=== PATIENT | female | born 1955 | race Caucasian/White ===

== ENCOUNTER 2016-11-17 10:50 | Outpatient (CLI) | payer OTHER ==
[~2016-11-17 10:50] MED LIST: ASPIRIN325 MG PO; ATORVASTATIN CA20 MG PO; FLUOXETINE HCL20 MG PO; HYCET1 ML PO; IRON PO; LOPRESSOR50 MG PO; MAXZIDE-25 PO; MULTIVITAMIN1 TAB PO; PRAVASTATIN SOD20 MG PO; PRINIVIL5 MG PO
--- NOTE | 2016-11-17 13:03 | DIAGNOSTIC IMAGING REPORT ---
PROCEDURE: US BILATERAL CAROTID DOPPLER INDICATION: 1YR F/U OCCLUSION TECHNIQUE: Color Doppler duplex imaging of the carotid and vertebral vessels. COMPARISON: None. FINDINGS: Minor plaque formation of the bifurcations bilaterally. Vessels are patent. Right common carotid artery peak systolic velocity 63 cm/second. Right internal carotid artery peak systolic velocity 68 cm/second. Right external carotid artery peak systolic velocity 100 cm/second. Right wirgreef-nc-bcvrym carotid artery ratio 1.1 Right vertebral artery peak systolic velocity 44 cm/second antegrade. Left common carotid artery peak systolic velocity 57 cm/second. Left internal carotid artery peak systolic velocity 92 cm/second. Left external carotid artery peak systolic velocity 166 cm/second. Left qihppgkz-rh-fsarhu carotid artery ratio 1.6 Left vertebral artery peak systolic velocity 49 cm/second antegrade. IMPRESSION: 1. Minor plaque formation of the bifurcations bilaterally without hemodynamically significant lesions 2. Bilateral ICA 5-15% stenosis 3. Left ECA 50-99% stenosis, unchanged Velocity criteria are extrapolated from diameter data as defined by the Society of Radiologists in Ultrasound Consensus Conference, Radiology 2003; 229; 340-346.
--- NOTE | 2016-11-17 13:03 | DIAGNOSTIC IMAGING REPORT ---
PROCEDURE: US BILATERAL CAROTID DOPPLER INDICATION: 1YR F/U OCCLUSION TECHNIQUE: Color Doppler duplex imaging of the carotid and vertebral vessels. COMPARISON: None. FINDINGS: Minor plaque formation of the bifurcations bilaterally. Vessels are patent. Right common carotid artery peak systolic velocity 63 cm/second. Right internal carotid artery peak systolic velocity 68 cm/second. Right external carotid artery peak systolic velocity 100 cm/second. Right nhhuqpdm-hf-ejcyfv carotid artery ratio 1.1 Right vertebral artery peak systolic velocity 44 cm/second antegrade. Left common carotid artery peak systolic velocity 57 cm/second. Left internal carotid artery peak systolic velocity 92 cm/second. Left external carotid artery peak systolic velocity 166 cm/second. Left nxzkewvm-dr-rbxuba carotid artery ratio 1.6 Left vertebral artery peak systolic velocity 49 cm/second antegrade. IMPRESSION: 1. Minor plaque formation of the bifurcations bilaterally without hemodynamically significant lesions 2. Bilateral ICA 5-15% stenosis 3. Left ECA 50-99% stenosis, unchanged Velocity criteria are extrapolated from diameter data as defined by the Society of Radiologists in Ultrasound Consensus Conference, Radiology 2003; 229; 340-346.
== END 2016-11-17 23:00 ==
LOC: US SRH 10:50
DX: I65.22 Occlusion and stenosis of left carotid artery (principal)

== ENCOUNTER 2016-12-03 17:16 | Observation (INO) | payer OTHER ==
[~2016-12-03] VITALS: Ht 149.9 cm; Wt 96.3 kg
--- NOTE | 2016-12-03 17:46 | DIAGNOSTIC IMAGING REPORT ---
PROCEDURE: CT HEAD WITHOUT CONTRAST INDICATION: STROKE right-sided weakness and paresthesias. TECHNIQUE: Axial CT images were acquired through the head. Coronal and sagittal reformations were created. COMPARISON: 05/17/2015 FINDINGS: No intracranial hemorrhage or extraaxial fluid collections. Ventricles are normal in size, shape and position. There is no mass, mass effect or midline shift. A slight heterogeneous low density region, slight cortical volume loss, and widening of the sylvian fissure in the left temporal and caudal parietal lobes in the area of prior infarct. The lacey-white matter differentiation is otherwise normal. There is no acute edema. The calvarium is intact. The paranasal sinuses and mastoid air cells are normally aerated. The extracranial soft tissues and orbits are normal. IMPRESSION: 1. No CT evidence of acute intracranial process. 2. Changes of prior left parietal and temporal lobe infarct. 3. Findings discussed with Dr. Poon at [address] scans at this facility use dose modulation, iterative reconstruction, and/or weight-based dosing when appropriate to reduce radiation dose to as low as reasonably achievable.
--- NOTE | 2016-12-03 19:02 | ED CLINICAL REPORT ---
Clinical Report - Physicians/Mid Levels [facility] [address] [place] [address] 12/03/2016 17:16 Patient: GREGORIO MONZON Time Seen: 1722; initial patient contact. Arrived- By private vehicle. Historian- patient. HISTORY OF PRESENT ILLNESS Chief Complaint: PARESTHESIA and FACIAL DROOP. This started today pproximately 2 hours prior to arrival in the emergency department and is still present (unchanged). It was abrupt in onset and has been constant but is not gone now. At its maximum deficit described as mild. When seen in the E.D., deficit described as mild. No altered mental status. Usually is alert and oriented X3 and has normal mobility. (patient [place] from [place]. Patient reports running out of her medications and not taking them for the past 2 days. Patient states that he does not completely understand her medications at this time as some of the medications she was given are in Upper Sor[place] and she is unable to read them.). Similar symptoms previously: Once. Recent medical care: Not recently seen/assessed. REVIEW OF SYSTEMS No fever, headache, chest pain, difficulty breathing or abdominal pain. No skin rash or vomiting. She has had nausea. All systems otherwise negative, except as recorded above. PAST HISTORY See nurses notes. Medications: ASA Oral 325mg , day ("I dond't take it"). Pramipexole Dihydrochloride Oral. Lipitor Oral. Valsartan-Hydrochlorothiazide Oral 160/25 mg, daily. Concor 5mg. Allergies: PCN. SOCIAL HISTORY Never smoker. No alcohol use or drug use. Recent travel. Is a local resident. ADDITIONAL NOTES The nursing notes have been reviewed. PHYSICAL EXAM Vital Signs: 12/03/2016 17:20 BP: 215/106. HR: 87. RR: 20. O2 saturation: 100%. Temp: 100.2 F. Hypertensive. Oxygen saturation normal. Appearance: Alert. No acute distress. (nontoxic appearance). Head: Head atraumatic. Eyes: Pupils equal, round and reactive to light. Pupillary exam: Right pupil 3mm, round and reactive to light directly and consensually and with accommodation. Left pupil: 3mm, round and reactive to light directly and consensually and with accommodation. No visual field deficit. No double vision. No nystagmus. ENT: Normal ENT inspection. Airway intact. Pharynx normal. Neck: Normal inspection. Neck supple. No meningeal signs. CVS: Normal heart rate and rhythm. Heart sounds normal. Pulses normal. Respiratory: No respiratory distress. Breath sounds normal. Abdomen: Soft and nontender. No organomegaly. Skin: Skin warm and dry. Normal skin color. No rash. Normal skin turgor. Extremities: Extremities exhibit normal ROM. No lower extremity edema. Neuro: Alert. Oriented X 3. No aphasia. Mood/affect normal. Mild dysarthria. Cranial nerves normal (as tested). Mild left-sided facial weakness. No cerebellar findings. No motor deficit. No sensory deficit. Reflexes normal. No pronator drift. LABS, X-RAYS, AND EKG EKG: No acute process. No acute ischemia. Normal EKG. Rate: 86. Normal P waves. Normal ABEBE. Normal QRS complex. Normal axis. Normal ST and T waves, QT and QTc. The study has been interpreted contemporaneously. The study has been independently viewed by me. The EKG appears to be a good tracing. Chest X-ray: (PROCEDURE: XR CHEST 1 VIEW INDICATION: STROKE TECHNIQUE: Single view chest. 1745 hours COMPARISON: None FINDINGS: Cardiomediastinal contour and central vessels are normal. Clear lungs. Surgical clips in the left neck. Intact osseous structures. IMPRESSION: 1. No evidence of acute cardiopulmonary disease.). CTA Head: PROCEDURE: CTA HEAD AND NECK INDICATION: STROKE SYMPTOMS TECHNIQUE: Axial thin-slice CTA images through the neck and head were acquired following uncomplicated administration of 120 ml Isovue 370 IV contrast. Coronal and sagittal MIP reformations were created. COMPARISON: None. FINDINGS: Head: Slightly delayed scan results in suboptimal arterial opacification. Anterior circulation: Anterior communicating artery is suboptimally seen but no evidence of aneurysm. Both anterior cerebral arteries are patent without stenosis or occlusion. Internal carotid arteries are patent bilaterally. No aneurysm at the carotid termini. Middle cerebral arteries are patent to the extent there visualized without acute occlusion. Posterior circulation: Patent posterior communicating arteries bilaterally. Codominant vertebral arteries. No evidence of basilar terminus aneurysm. Posterior cerebral arteries are patent. Bilateral cerebellar arteries are normally perfused to the extent that could be visualized. Other findings: Neck: Carotid system: Tortuous origin of the right common carotid. No evidence of dissection. Surgical clips in the region of the left carotid bifurcation. Calcification at the origin of the left external carotid artery causing least 50% stenosis. Tortuous proximal left ICA. No dissection or significant stenosis. Vertebral system: The left vertebral artery is dominant. The right is extremely diminutive diffusely. No dissection. Other findings: IMPRESSION: 1. No acute occlusion, aneurysm, or dissection. 2. Surgical clips suggestive of prior left carotid intervention. CT Head: (PROCEDURE: CT HEAD WITHOUT CONTRAST INDICATION: STROKE right-sided weakness and paresthesias. TECHNIQUE: Axial CT images were acquired through the head. Coronal and sagittal reformations were created. COMPARISON: 05/17/2015 FINDINGS: No intracranial hemorrhage or extraaxial fluid collections. Ventricles are normal in size, shape and position. There is no mass, mass effect or midline shift. A slight heterogeneous low density region, slight cortical volume loss, and widening of the sylvian fissure in the left temporal and caudal parietal lobes in the area of prior infarct. The lacey-white matter differentiation is otherwise normal. There is no acute edema. The calvarium is intact. The paranasal sinuses and mastoid air cells are normally aerated. The extracranial soft tissues and orbits are normal. IMPRESSION: 1. No CT evidence of acute intracranial process. 2. Changes of prior left parietal and temporal lobe infarct.). Head CT performed without contrast. The study was independently viewed by me and interpreted by the radiologist. The study was discussed with the radiologist (via phone and pacs). Laboratory Tests: CBC w Diff: (DAMEON: 12/03/2016 17:20) ( MsgRcvd 12/03/2016 17:33) Final results Test Result Flag Units (Reference) WHITE BLOOD COUNT 11.9 H K/uL (4.5-11.5) RED BLOOD COUNT 4.87 M/uL (4.00-5.20) HEMOGLOBIN 14.3 gm/dL (12.0-16.0) HEMATOCRIT 43.4 % (36.0-46.0) MEAN CELL VOLUME 89 fL (80-100) MEAN CORPUSCULAR HGB 29 pg (26-34) MEAN CORPUSCULAR HGB CONC 33 g/dL (31-37) RED CELL DISTRIBUTION WIDTH 13.6 % (11.6-14.8) PLATELET COUNT 465 H K/uL (150-400) NEUTROPHIL % 68.6 % (50-75) LYMPH % 24.1 L % (25-40) MONO % 6.2 % (3-14) EOSINOPHIL % 0.9 % (0-4) BASOPHIL % 0.2 % (0-2) PT with INR: (DAMEON: 12/03/2016 17:20) ( MsgRcvd 12/03/2016 17:41) Final results Test Result Flag Units (Reference) INR 1.0 (0.8-1.2) Low Intensity Therapy: INR 1.5-2.0 PT range 18.5-23.1Mod.Intensity Therapy: INR 2.0-3.0 PT range 23.1-31.5High Intensity Therapy: INR 2.5-3.5 PT range 27.4-35.5High Intensity Therapy 2: INR 3.0-4.0 PT range 31.5-39.3 APTT 37 H SECONDS (24-34) FIBRINOGEN 434 mg/dL (193-455) D-DIMER QUANTITATIVE < 0.27 L ug/mLFEU (0.27-0.52) The primary value of this quantitative assay relates toits negative predictive value (i.e. exclusion) of pulmonaryembolism/deep vein thrombosis/DIC.Elevated levels of d-dimer may also occur with:, age, cancer, inflammation, liver disease,post-op, infection, hematoma, coronary disease, peripheralarteriopathy, bleeding disorders and thrombolytic treatment.Results should be correlated with other clinical andradiological data.Testing Methodology: Latex Immunoassay CMP: (DAMEON: 12/03/2016 17:20) ( MsgRcvd 12/03/2016 17:43) Final results Test Result Flag Units (Reference) GLUCOSE 176 H mg/dL (70-110) BUN 20 H mg/dL (7-18) CREATININE 1.1 mg/dL (0.6-1.3) Estimated GFR 54.03 mL/min Estimated GFR- >60 mL/min Note: Persistent reduction over 3 months in eGFR<60 mL/min/1.73 m2 defines CKD. Patients with eGFR values>=60 mL/min/1.73 m2 may also have CKD if evidence ofpersistent proteinuria. Additional information may be foundat [email or web address]. SODIUM 144 mmol/L (136-145) POTASSIUM 3.2 L mmol/L (3.5-5.1) CHLORIDE 105 mmol/L (98-107) CARBON DIOXIDE 27 mmol/L (21-32) CALCIUM 8.7 mg/dL (8.5-10.1) TOTAL PROTEIN 7.5 g/dL (6.4-8.2) ALBUMIN 3.7 g/dL (3.3-5.0) BILIRUBIN, TOTAL 0.3 mg/dL (0.0-1.0) ALKALINE PHOSPHATASE 104 U/L (46-116) AST (SGOT) 17 U/L (15-37) ALT (SGPT) 28 U/L (12-78) . PROGRESS AND PROCEDURES Course of Care: the patient is a pleasant 61-year-old female with past medical history significant for peripheral vascular disease and prior stroke presented for evaluation of left-sided subjective tingling and facial droop. On examination, patient has NH stroke scale of 4. Patient with some slurred speech however does not have any difficulty with word finding or with fluid speech. Patient with slight facial droop on the left with inability to move her tongue to the left. Patient also with subjective decreased sensation to the left upper extremity and left face. Sparing of the forehead is noted on patient's examination. No other findings noted on patient's examination except for significantly elevated blood pressure. Patient was called over as a code stroke. Had a discussion with the patient in regards to her workup here in the emergency department and plan of care. Patient is agreeable to the workup. Patient's workup was noted for no acute abnormalities. Patient's PT and INR are otherwise normal. Patient's PTT is slightly elevated however but only just above the upper limits of normal. Because of the patient's time course occurring approximately 2-1/2 hours prior to arrival in the emergency department, patient would be a candidate for TPA. Had a discussion with stroke neurology over at [facility]. At this point in time because the patient's NIH stroke scale of 4 and blood pressure had significantly improved with the dose of labetalol, patient will be a candidate for TPA. Shortly after obtaining recommendations from [facility], patient was reevaluated and found to have significant improvement with her symptoms and her blood pressure did also significantly improved as well. Patient now with NIH stroke scale of 1 with only slight facial droop on the left side. Other symptoms have resolved. Because of the rapidly improving symptoms, do not feel TPA is warranted at this time. Had a discussion with patient in regards toTPA and the risks and benefits of this medication. Patient currently is declining this medication as well. Stroke. Also recommended patient have a CTA. CTA has been ordered. We are currently awaiting the patient's CTA results and patient will need to be observed for stroke workup. Patient's CT is noted for no acute abnormalities. Spoke to the hospitalist will accept the patient. No further recommendations made. I discussed with the patient workup here in the emergency department including diagnosis, And plan of care. All questions have been answered. Patient is agreeable to the treatment and plan. (Electronically signed by Carl Poon Dr. 12/03/2016 20:26)
--- NOTE | 2016-12-03 19:02 | ED NURSING NOTES ---
Clinical Report - Nurses [facility] [address] [place] [address] 12/03/2016 17:16 Patient: GREGORIO MONZON TRIAGE Triage time 17:20. Acuity: LEVEL 3. Chief Complaint: DIZZINESS, NUMBNESS and BACK PAIN (Lt side of the face feels numb, started at 1515 today, back pain. I took 2 baby asa earlier Bedside glucose 168mg/dl. Lt arm feels numb.). Alert. No acute distress. SEPSIS SCREEN: Sepsis Screen: negative. Negative (no infection suspected/documented). MARIA G COMA SCORE: Maria G Coma Scale: 15- eyes open spontaneously (4); best verbal response- oriented x 4 (5); best motor response- obeys commands (6). --17:36 Cindy Malik R.N. 17:20 12/03/16. BP: 215/106. HR: 87. RR: 20. O2 saturation: 100%. Temp: 100.2 F. --17:36 Cindy Malik R.N. 17:20 12/03/16. BP: 215/106. HR: 87. RR: 20. O2 saturation: 100%. Temp: 100.2 F. --17:36 Cindy Malik R.N. Weight: 95.7 kg measured. Height/Length: 59 inches Per Patient. BMI: 42.6. --17:23 Cindy Malik R.N. Medications Concor 5mg. --17:28 Cindy Malik R.N. Lipitor Oral. Valsartan-Hydrochlorothiazide Oral 160/25 mg, daily. --17:30 Cindy Malik R.N. Pramipexole Dihydrochloride Oral. --17:33 Cindy Malik R.N. ASA Oral 325mg , day ("I dond't take it"). --17:34 Cindy Malik R.N. Allergies PCN. --17:32 Cindy Malik R.N. Medication/allergy information source: the patient. --17:36 Cindy Malik R.N. History Arrived by private vehicle. Historian: patient and family. ( Stroke code called. at the bedside doing stroke scale.). This started today. She has had weakness. 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 PAST MEDICAL HX: Immunizations: status is unknown. The patient is post-menopausal. FALL RISK ASSESSMENT: Fall risk assessment completed. No fall risk identified. NUTRITIONAL RISK ASSESSMENT: The nutritional risk assessment revealed no deficiencies. FUNCTIONAL ASSESSMENT: Functional assessment: no impairments noted. LEARNING NEEDS ASSESSMENT: The learning needs assessment revealed no barriers. SKIN INTEGRITY ASSESSMENT: Skin integrity risk assessment completed. No skin integrity risk identified. --17:36 Cindy Malik R.N. Primary physician (Amee). --17:36 Cindy Malik R.N. PROBLEMS: CVA - Cerebrovascular Accident. Hypertension. --17:35 Cindy Malik R.N. ADDITIONAL SURGERIES: Knee Surgery. --17:35 Cindy Malik R.N. Interventions ID band on patient. To room. --17:36 Cindy Malik R.N. PHYSICAL ASSESSMENT To room via wheelchair. Patient gowned. GENERAL / NEURO / PSYCH: Alert. Oriented X 4. Appears anxious. HEENT: Left-sided facial weakness. RESPIRATORY: Respirations not labored. CVS: Capillary refill less than 2 seconds. GI / : Abdomen nontender. SKIN: Skin intact. Skin is warm and dry. Normal skin turgor. --17:37 Cindy Malik R.N. NURSING PROGRESS NOTES Oxygen administered at 2 liters. teletypesetter monitor, pulse oximeter and NIBP monitor placed on patient; monitoring tech- Lead II; monitor alarms on. EKG time: (1740). EKG was performed by a donta and shown to the ED physician. Patient gowned. Head of bed elevated. Two patient identifiers checked. Call light placed in reach. Side rails up x 2. Bed placed in lowest position. Brakes of bed on. --17:38 Cindy Malik R.N. 17:24 12/03/2016 Site #1 started via IV in the right antecubital space with an 18g angiocath, with aseptic technique and good blood return; one attempt. Blood drawn: rainbow set. Labeled in the presence of the patient. Saline lock flushed with 10 mL saline. --17:39 Cindy Malik R.N. 17:29 12/03/2016 Site #2 started via IV in the left antecubital space with an 18g angiocath, with aseptic technique and good blood return; one attempt. Blood drawn: rainbow set. Labeled in the presence of the patient and sent to the lab. Saline lock flushed with 10 mL saline. --17:39 Cindy Malik R.N. EKG time: (1740). EKG was ordered, performed by a tech and shown to the ED physician. --17:40 Brenda Yoon 17:42 12/03/16. Portable chest x-ray ordered, performed and shown to the ED physician. --17:42 Cindy Malik R.N. Care transferred and report given (Given to EVERETT Fall). --18:00 Cindy Malik R.N. 18:01 12/03/2016 Labetalol IVP 20 mg given. via site #2. Allergies verified and confirmed 5 rights. IV patency established. IV site checked: no pain, redness, or swelling. IV flushed thoroughly pre- and post-medication administration. IVP given by RN. --18:04 Bhupendra Romero R.N. 18:01. 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 --18:10 Bhupendra Romero R.N. 17:54 12/03/16. BP: 204/79. HR: 109. RR: 21. O2 saturation: 98%. Additional comments: just prior to labetolol admin. --18:11 Bhupendra Romero R.N. 18:01 12/03/16. BP: 174/76. HR: 82. RR: 19. Pain level now: 08/08. Additional comments: after labetolol. --18:12 Bhupendra Romero R.N. Cardiac rhythm: no ectopy noted (SR). NIH STROKE SCALE: NIH Stroke Scale: score 1. Performed at 18:17. Level of Consciousness: alert (0). LOC Questions: both (0). LOC Commands: both (0). Best gaze: normal (0). Visual field loss: none (0). Facial palsy: normal (0). Motor arm: no drift right arm (0) and no drift left arm (0). Motor leg: no drift right leg (0) and no drift left leg (0). Limb ataxia: none (0). Sensory loss: mild to moderate (1). Aphasia: none (0). Dysarthria: normal (0). Extinction and inattention: none (0). --18:17 Bhupendra Romero R.N. 18:17 12/03/16. BP: 159/75. HR: 81. O2 saturation: 97%. Pain level now: 08/08. --18:17 Bhupendra Romero R.N. ( MD at bedside speaking with pt regarding poc). --18:19 Bhupendra Romero R.N. ( MD at bedside explaining plan for admission). --18:30 Bhupendra Romero R.N. 18:29 12/03/16. BP: 159/75. HR: 74. RR: 18. Pain level now: 08/08. --18:30 Bhupendra Romero R.N. ( pt to CT with donta ok per MD for pt to go without RN). --18:36 Bhupendra Romero R.N. 18:56 12/03/16. Cardiac rhythm: (SR). Call light placed in reach. Side rails up. Patient waiting for CT results. --19:08 Bhupendra Romero R.N. 18:56 12/03/16. Pain level now 08/08. --19:08 Bhupendra Romero R.N. ( pt using cell phone to call her son to notify him of admission. pt remains a/o, maee, speech is clear and articulate, pt moves about independently on [facility], waiting room for admission). --19:09 Bhupendra Romero R.N. Patient identifiers checked. Call light placed in reach. Side rails up x 2. Bed placed in lowest position. Brakes of bed on. --19:09 Bhupendra Romero R.N. teletypesetter monitor, pulse oximeter and NIBP monitor placed on patient; monitoring tech- Lead II and V5; monitor alarms on. --19: Bhupendra Romero R.N. ( son arrived at bedside). --19:19 Bhupendra Romero R.N. ( pt provided form builder to use for ipad, speech remains clear, no c/o voiced, iv site to left arm redressed as pts only c/o was "that needle hurts" after redressing pt reports no pain). --19:45 Bhupendra Romero R.N. 20:19 12/03/16. HR: 81. RR: 17. Pain level now: 08/08. --20:20 Bhupendra Romero R.N. ( hospitalist at bedside, pt in ,). --20:21 Bhupendra Romero R.N. Patient identifiers checked. Call light placed in reach. Side rails up. Bed placed in lowest position. Brakes of bed on. NIH STROKE SCALE: NIH Stroke Scale: score 0. pt "I am completely back to normal". Level of Consciousness: alert (0). LOC Questions: both (0). LOC Commands: both (0). Best gaze: normal (0). Visual field loss: none (0). Facial palsy: normal (0). Motor arm: no drift right arm (0) and no drift left arm (0). Motor leg: no drift right leg (0) and no drift left leg (0). Limb ataxia: none (0). Sensory loss: none (0). Aphasia: none (0). Dysarthria: normal (0). Extinction and inattention: none (0). --21:14 Bhupendra Romero R.N. 21:13 12/03/16. BP: 163/91. HR: 78. RR: 17. O2 saturation: 98%. Pain level now: 4/10. Additional comments: c/o headache. --21:14 Bhupendra Romero R.N. DISPOSITION / DISCHARGE Report was given to a nurse via a phone call. Report included patient's care, treatment, medications, reviewed medication reconcilliation, and condition (including any recent changes or anticipated changes). All questions were answered. Report was acknowledged and care was transferred. (EVERETT Weiss). --21:53 Tony Sy R.N. Condition at departure: stable. The goals identified in the patient's plan of care were met. Patient's personal items include: dress, undergarments and jewelry, iPad; items were placed in belongings bag, given to the patient and transported with the patient. Collection of belongings was witnessed by 1 nurse. MARIA G COMA SCORE: [place] Coma Scale: 15- eyes open spontaneously (4); best verbal response- oriented x 4 (5); best motor response- obeys commands (6). --21:59 Tony Sy R.N. 21:58 12/03/16. BP: 170/99 (regular adult cuff) taken on the right arm, via an automated monitor, while lying. HR: 81 (regular and normal rate). RR: 18 (regular, unlabored and normal). O2 saturation: 96% on room air. Temp: 98.1 F (oral). Pain level now: 0/10. --21:59 oTny Sy R.N. Locked/Released at 12/04/2016 0:37 by Bhupendra Romero R.N.
--- NOTE | 2016-12-03 19:02 | ED ORDER SUMMARY ---
..... Patient: GREGORIO MONZON OrderSheet [facility] VisitID: [id number] [place] [address] 61y, F Registration Date/Time: 12/03/2016 ORDER SHEET Weight: 95.7 kg (measured) Allergies: PCN GENERAL ORDERS: Chest 1V Urgent (17:12/03/2016 Shane Amaya) (Ack 17:26 TBergley) (17:39 TBergley) Rover Tender (Continuous) (stroke) (17:12/03/2016 Shane Amaya) (Ack 17:26 TBergley) (17:33 TBergley) CT Head wo Cont Urgent (17:12/03/2016 Shane Amaya) (Ack 17:26 TBergley) (17:39 TBergley) Stroke Panel Stat (17:12/03/2016 Shane Amaya) (Ack 17:26 TBergley) (17:39 TBergley) EKG - ER Stat (17:12/03/2016 Shane Amaya) (Ack 17:26 TBergley) (17:33 TBergley) CTA Head and Neck (No) (gfr > 60) Urgent (18:22 12/03/2016 Shane Amaya) (Ack 18:26 TBergley) (18:50 TBergley) MEDICATION ORDERS: Aspirin PO 162 mg (Do not crush or chew, NOW) (17:12/03/2016 Shane Amaya) (Cancelled: Physician Order17:26 Shane Amaya) IV FLUIDS: IV Saline Lock (17:25 12/03/2016 Shane Amaya) (17:40 SRoberts R.N.) Labetalol IV 20 mg (HIGH ALERT MEDICATION, NOW) (17:49 12/03/2016 Shane Amaya) (18:04 Talha R.N.) Labetalol IV 20 mg (HIGH ALERT MEDICATION, NOW) (18:02 12/03/2016 Shane Amaya) (Cancelled: Duplicate Order18:07 Shane Amaya) ORDER SHEET NOTES: [Electronically signed by Carl Poon Dr. (20:26 12/03/2016)] [Electronically signed by Bhupendra Romero R.N. (00:37 12/04/2016)] [Electronically locked/signed by Bhupendra Romero R.N. (00:37 12/04/2016)]
--- NOTE | 2016-12-03 19:02 | ED ORDER SUMMARY ---
..... Patient: GREGORIO MONZON OrderSheet [facility] VisitID: [id number] [place] [address] 61y, F Registration Date/Time: 12/03/2016 ORDER SHEET Weight: 95.7 kg (measured) Allergies: PCN GENERAL ORDERS: Chest 1V Urgent (17:12/03/2016 Shane Amaya) (Ack 17:26 TBergley) (17:39 TBergley) Stock Grader (Continuous) (stroke) (17:12/03/2016 Shane Amaya) (Ack 17:26 TBergley) (17:33 TBergley) CT Head wo Cont Urgent (17:12/03/2016 Shane Amaya) (Ack 17:26 TBergley) (17:39 TBergley) Stroke Panel Stat (17:12/03/2016 Shane Amaya) (Ack 17:26 TBergley) (17:39 TBergley) EKG - ER Stat (17:12/03/2016 Shane Amaya) (Ack 17:26 TBergley) (17:33 TBergley) CTA Head and Neck (No) (gfr > 60) Urgent (18:22 12/03/2016 Shane Amaya) (Ack 18:26 TBergley) (18:50 TBergley) MEDICATION ORDERS: Aspirin PO 162 mg (Do not crush or chew, NOW) (17:12/03/2016 Shane Amaya) (Cancelled: Physician Order17:26 Shane Amaya) IV FLUIDS: IV Saline Lock (17:25 12/03/2016 Shane Amaya) (17:40 SRoberts R.N.) Labetalol IV 20 mg (HIGH ALERT MEDICATION, NOW) (17:49 12/03/2016 Shane Amaya) (18:04 Talha R.N.) Labetalol IV 20 mg (HIGH ALERT MEDICATION, NOW) (18:02 12/03/2016 Shane Amaya) (Cancelled: Duplicate Order18:07 Shane Amaya) ORDER SHEET NOTES: [Electronically signed by Carl Poon Dr. (20:26 12/03/2016)] [Electronically signed by Bhupendra Romero R.N. (00:37 12/04/2016)] [Electronically locked/signed by Bhupendra Romero R.N. (00:37 12/04/2016)]
--- NOTE | 2016-12-03 19:02 | ED NURSING NOTES ---
Clinical Report - Nurses [facility] [address] [place] [address] 12/03/2016 17:16 Patient: GREGORIO MONZON TRIAGE Triage time 17:20. Acuity: LEVEL 3. Chief Complaint: DIZZINESS, NUMBNESS and BACK PAIN (Lt side of the face feels numb, started at 1515 today, back pain. I took 2 baby asa earlier Bedside glucose 168mg/dl. Lt arm feels numb.). Alert. No acute distress. SEPSIS SCREEN: Sepsis Screen: negative. Negative (no infection suspected/documented). MARIA G COMA SCORE: Maria G Coma Scale: 15- eyes open spontaneously (4); best verbal response- oriented x 4 (5); best motor response- obeys commands (6). --17:36 Cindy Malik R.N. 17:20 12/03/16. BP: 215/106. HR: 87. RR: 20. O2 saturation: 100%. Temp: 100.2 F. --17:36 Cindy Mlaik R.N. 17:20 12/03/16. BP: 215/106. HR: 87. RR: 20. O2 saturation: 100%. Temp: 100.2 F. --17:36 Cindy Malik R.N. Weight: 95.7 kg measured. Height/Length: 59 inches Per Patient. BMI: 42.6. --17:23 Cindy Malik R.N. Medications Concor 5mg. --17:28 Cindy Malik R.N. Lipitor Oral. Valsartan-Hydrochlorothiazide Oral 160/25 mg, daily. --17:30 Cindy Malik R.N. Pramipexole Dihydrochloride Oral. --17:33 Cindy Malik R.N. ASA Oral 325mg , day ("I dond't take it"). --17:34 Cindy Malik R.N. Allergies PCN. --17:32 Cindy Malik R.N. Medication/allergy information source: the patient. --17:36 Cindy Malik R.N. History Arrived by private vehicle. Historian: patient and family. ( Stroke code called. at the bedside doing stroke scale.). This started today. She has had weakness. 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 PAST MEDICAL HX: Immunizations: status is unknown. The patient is post-menopausal. FALL RISK ASSESSMENT: Fall risk assessment completed. No fall risk identified. NUTRITIONAL RISK ASSESSMENT: The nutritional risk assessment revealed no deficiencies. FUNCTIONAL ASSESSMENT: Functional assessment: no impairments noted. LEARNING NEEDS ASSESSMENT: The learning needs assessment revealed no barriers. SKIN INTEGRITY ASSESSMENT: Skin integrity risk assessment completed. No skin integrity risk identified. --17:36 Cindy Malik R.N. Primary physician (Amee). --17:36 Cindy Malik R.N. PROBLEMS: CVA - Cerebrovascular Accident. Hypertension. --17:35 Cindy Malik R.N. ADDITIONAL SURGERIES: Knee Surgery. --17:35 Cindy Malik R.N. Interventions ID band on patient. To room. --17:36 Cindy Malik R.N. PHYSICAL ASSESSMENT To room via wheelchair. Patient gowned. GENERAL / NEURO / PSYCH: Alert. Oriented X 4. Appears anxious. HEENT: Left-sided facial weakness. RESPIRATORY: Respirations not labored. CVS: Capillary refill less than 2 seconds. GI / : Abdomen nontender. SKIN: Skin intact. Skin is warm and dry. Normal skin turgor. --17:37 Cindy Malik R.N. NURSING PROGRESS NOTES Oxygen administered at 2 liters. bus driver/monitor, pulse oximeter and NIBP monitor placed on patient; hospital monitor- Lead II; monitor alarms on. EKG time: (1740). EKG was performed by a donta and shown to the ED physician. Patient gowned. Head of bed elevated. Two patient identifiers checked. Call light placed in reach. Side rails up x 2. Bed placed in lowest position. Brakes of bed on. --17:38 Cindy Malik R.N. 17:24 12/03/2016 Site #1 started via IV in the right antecubital space with an 18g angiocath, with aseptic technique and good blood return; one attempt. Blood drawn: rainbow set. Labeled in the presence of the patient. Saline lock flushed with 10 mL saline. --17:39 Cindy Malik R.N. 17:29 12/03/2016 Site #2 started via IV in the left antecubital space with an 18g angiocath, with aseptic technique and good blood return; one attempt. Blood drawn: rainbow set. Labeled in the presence of the patient and sent to the lab. Saline lock flushed with 10 mL saline. --17:39 Cindy Malik R.N. EKG time: (1740). EKG was ordered, performed by a tech and shown to the ED physician. --17:40 Brenda Yoon 17:42 12/03/16. Portable chest x-ray ordered, performed and shown to the ED physician. --17:42 Cindy Malik R.N. Care transferred and report given (Given to EVERETT Fall). --18:00 Cindy Malik R.N. 18:01 12/03/2016 Labetalol IVP 20 mg given. via site #2. Allergies verified and confirmed 5 rights. IV patency established. IV site checked: no pain, redness, or swelling. IV flushed thoroughly pre- and post-medication administration. IVP given by RN. --18:04 Bhupendra Romero R.N. 18:01. 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 --18:10 Bhupendra Romero R.N. 17:54 12/03/16. BP: 204/79. HR: 109. RR: 21. O2 saturation: 98%. Additional comments: just prior to labetolol admin. --18:11 Bhupendra Romero R.N. 18:01 12/03/16. BP: 174/76. HR: 82. RR: 19. Pain level now: 08/08. Additional comments: after labetolol. --18:12 Bhupendra Romero R.N. Cardiac rhythm: no ectopy noted (SR). NIH STROKE SCALE: NIH Stroke Scale: score 1. Performed at 18:17. Level of Consciousness: alert (0). LOC Questions: both (0). LOC Commands: both (0). Best gaze: normal (0). Visual field loss: none (0). Facial palsy: normal (0). Motor arm: no drift right arm (0) and no drift left arm (0). Motor leg: no drift right leg (0) and no drift left leg (0). Limb ataxia: none (0). Sensory loss: mild to moderate (1). Aphasia: none (0). Dysarthria: normal (0). Extinction and inattention: none (0). --18:17 Bhupendra Romero R.N. 18:17 12/03/16. BP: 159/75. HR: 81. O2 saturation: 97%. Pain level now: 08/08. --18:17 Bhupendra Romero R.N. ( MD at bedside speaking with pt regarding poc). --18:19 Bhupendra Romero R.N. ( MD at bedside explaining plan for admission). --18:30 Bhupendra Romero R.N. 18:29 12/03/16. BP: 159/75. HR: 74. RR: 18. Pain level now: 08/08. --18:30 Bhupendra Romero R.N. ( pt to CT with donta ok per MD for pt to go without RN). --18:36 Bhupendra Romero R.N. 18:56 12/03/16. Cardiac rhythm: (SR). Call light placed in reach. Side rails up. Patient waiting for CT results. --19:08 Bhupendra Romero R.N. 18:56 12/03/16. Pain level now 08/08. --19:08 Bhupendra Romero R.N. ( pt using cell phone to call her son to notify him of admission. pt remains a/o, maee, speech is clear and articulate, pt moves about independently on [facility], waiting room for admission). --19:09 Bhupendra Romero R.N. Patient identifiers checked. Call light placed in reach. Side rails up x 2. Bed placed in lowest position. Brakes of bed on. --19:09 Bhupendra Romero R.N. bus driver/monitor, pulse oximeter and NIBP monitor placed on patient; hospital monitor- Lead II and V5; monitor alarms on. --19: Bhupendra Romero R.N. ( son arrived at bedside). --19:19 Bhupendra Romero R.N. ( pt provided toll gate tender to use for ipad, speech remains clear, no c/o voiced, iv site to left arm redressed as pts only c/o was "that needle hurts" after redressing pt reports no pain). --19:45 Bhupendra Romero R.N. 20:19 12/03/16. HR: 81. RR: 17. Pain level now: 08/08. --20:20 Bhupendra Romero R.N. ( hospitalist at bedside, pt in ,). --20:21 Bhupendra Romero R.N. Patient identifiers checked. Call light placed in reach. Side rails up. Bed placed in lowest position. Brakes of bed on. NIH STROKE SCALE: NIH Stroke Scale: score 0. pt "I am completely back to normal". Level of Consciousness: alert (0). LOC Questions: both (0). LOC Commands: both (0). Best gaze: normal (0). Visual field loss: none (0). Facial palsy: normal (0). Motor arm: no drift right arm (0) and no drift left arm (0). Motor leg: no drift right leg (0) and no drift left leg (0). Limb ataxia: none (0). Sensory loss: none (0). Aphasia: none (0). Dysarthria: normal (0). Extinction and inattention: none (0). --21:14 Bhupendra Romero R.N. 21:13 12/03/16. BP: 163/91. HR: 78. RR: 17. O2 saturation: 98%. Pain level now: 4/10. Additional comments: c/o headache. --21:14 Bhupendra Romero R.N. DISPOSITION / DISCHARGE Report was given to a nurse via a phone call. Report included patient's care, treatment, medications, reviewed medication reconcilliation, and condition (including any recent changes or anticipated changes). All questions were answered. Report was acknowledged and care was transferred. (EVERETT Weiss). --21:53 Tony Sy R.N. Condition at departure: stable. The goals identified in the patient's plan of care were met. Patient's personal items include: dress, undergarments and jewelry, iPad; items were placed in belongings bag, given to the patient and transported with the patient. Collection of belongings was witnessed by 1 nurse. MARIA G COMA SCORE: [place] Coma Scale: 15- eyes open spontaneously (4); best verbal response- oriented x 4 (5); best motor response- obeys commands (6). --21:59 Tony Sy R.N. 21:58 12/03/16. BP: 170/99 (regular adult cuff) taken on the right arm, via an automated monitor, while lying. HR: 81 (regular and normal rate). RR: 18 (regular, unlabored and normal). O2 saturation: 96% on room air. Temp: 98.1 F (oral). Pain level now: 0/10. --21:59 Tony Sy R.N. Locked/Released at 12/04/2016 0:37 by Bhupendra Romeor R.N.
--- NOTE | 2016-12-03 19:08 | DIAGNOSTIC IMAGING REPORT ---
PROCEDURE: XR CHEST 1 VIEW INDICATION: STROKE TECHNIQUE: Single view chest. 1745 hours COMPARISON: None FINDINGS: Cardiomediastinal contour and central vessels are normal. Clear lungs. Surgical clips in the left neck. Intact osseous structures. IMPRESSION: 1. No evidence of acute cardiopulmonary disease.
--- NOTE | 2016-12-03 19:57 | DIAGNOSTIC IMAGING REPORT ---
PROCEDURE: CTA HEAD AND NECK INDICATION: STROKE SYMPTOMS TECHNIQUE: Axial thin-slice CTA images through the neck and head were acquired following uncomplicated administration of 120 ml Isovue 370 IV contrast. Coronal and sagittal MIP reformations were created. COMPARISON: None. FINDINGS: Head: Slightly delayed scan results in suboptimal arterial opacification. Anterior circulation: Anterior communicating artery is suboptimally seen but no evidence of aneurysm. Both anterior cerebral arteries are patent without stenosis or occlusion. Internal carotid arteries are patent bilaterally. No aneurysm at the carotid termini. Middle cerebral arteries are patent to the extent there visualized without acute occlusion. Posterior circulation: Patent posterior communicating arteries bilaterally. Codominant vertebral arteries. No evidence of basilar terminus aneurysm. Posterior cerebral arteries are patent. Bilateral cerebellar arteries are normally perfused to the extent that could be visualized. Other findings: Neck: Carotid system: Tortuous origin of the right common carotid. No evidence of dissection. Surgical clips in the region of the left carotid bifurcation. Calcification at the origin of the left external carotid artery causing least 50 % stenosis. Tortuous proximal left ICA. No dissection or significant stenosis. Vertebral system: The left vertebral artery is dominant. The right is extremely diminutive diffusely. No dissection. Other findings: IMPRESSION: 1. No acute occlusion, aneurysm, or dissection. 2. Surgical clips suggestive of prior left carotid intervention.
[2016-12-03 22:30] VITALS: BP 112/59
--- NOTE | 2016-12-04 00:38 | ED MAR SUMMARY ---
..... Medication Administration Record [facility] [address] [place] [address] Patient: GREGORIO MONZON Visit ID: [id number] 61y, F Weight: 95.7 kg Height/Length: 59 in BMI: 42.6 ALLERGIES: PCN Given 18:01 12/03/2016 Bhupendra Romero R.N. Medication Administered: LABETALOL [IVP], Dose: 20 mg IVP, Site: #2 left . Medication Ordered: Labetalol IV 20 mg (HIGH ALERT MEDICATION, NOW).
--- NOTE | 2016-12-04 00:38 | ED MED RECONCILIATION SUMMARY ---
Patient: DERECK MONZONNE Ry Medication Reconciliation Report [facility] VisitID: [id number] [address] [place] [address] 61y, F Registration Date/Time: 12/03/2016 Weight: 95.7 kg Height/Length: 59 in. BMI: 42.6 ALLERGIES: PCN The patient's Home Medications are listed below: THE FOLLOWING MEDICATIONS NEED TO BE RECONCILED: ASA Oral 325mg , day, "I dond't take it" Concor 5mg Lipitor Oral Pramipexole Dihydrochloride Oral Valsartan-Hydrochlorothiazide Oral 160/25 mg, daily The source(s) of the original Home Medication information: patient The following Medications were given to the patient in the Emergency Department: Labetalol [IVP] IVP 20 mg, administered: 12/03/2016 6:01:00 PM The following Medications were prescribed to the patient: None.
--- NOTE | 2016-12-04 00:38 | ED MAR SUMMARY ---
..... Medication Administration Record [facility] [address] [place] [address] Patient: GREGORIO MONZON Visit ID: [id number] 61y, F Weight: 95.7 kg Height/Length: 59 in BMI: 42.6 ALLERGIES: PCN Given 18:01 12/03/2016 Bhupendra Romero R.N. Medication Administered: LABETALOL [IVP], Dose: 20 mg IVP, Site: #2 left . Medication Ordered: Labetalol IV 20 mg (HIGH ALERT MEDICATION, NOW).
--- NOTE | 2016-12-04 00:38 | ED MED RECONCILIATION SUMMARY ---
Patient: DERECK MONZONNE Ry Medication Reconciliation Report [facility] VisitID: [id number] [address] [place] [address] 61y, F Registration Date/Time: 12/03/2016 Weight: 95.7 kg Height/Length: 59 in. BMI: 42.6 ALLERGIES: PCN The patient's Home Medications are listed below: THE FOLLOWING MEDICATIONS NEED TO BE RECONCILED: ASA Oral 325mg , day, "I dond't take it" Concor 5mg Lipitor Oral Pramipexole Dihydrochloride Oral Valsartan-Hydrochlorothiazide Oral 160/25 mg, daily The source(s) of the original Home Medication information: patient The following Medications were given to the patient in the Emergency Department: Labetalol [IVP] IVP 20 mg, administered: 12/03/2016 6:01:00 PM The following Medications were prescribed to the patient: None.
--- NOTE | 2016-12-04 02:41 | HISTORY AND PHYSICAL ---
ADMITTED: 12/03/2016 CHIEF COMPLAINT: 1. Weakness in the left side. HISTORY OF PRESENT ILLNESS: This is a 61-year-old white female who become very upset at 3 p.m. today and then developed weakness in the left side with pulsating pain in that arm. No chest pain. Also developed facial droop with slurred speech. Also some tingling and numbness in the neck and the cheeks. No palpitations, but blurred vision. No tinnitus. The patient was transferred by EMS to the emergency department and the symptoms resolved in the emergency department. MEDICAL/SURGICAL HISTORY: Past medical history: Remarkable for hypertension and stroke. Surgical history is remarkable for gastric bypass, hysterectomy, bladder surgery and knee surgery. Hospitalizations: Last one was 10 years ago and that was for a hysterectomy. MEDICATIONS: 1. Concor 5 mg daily. 2. Lipitor, dosage is not known. 3. Valsartan/hydrochlorothiazide 160/25 once a day. 4. Pramipexole, dosage is not known. 5. Aspirin 325 mg daily, but the patient was not taking it. ALLERGIES: 1. PENICILLIN. SOCIAL HISTORY: The patient is , has 2 kids, just came back from [facility] 3 weeks ago. There is no history of smoking or alcohol or drug abuse. FAMILY HISTORY: Remarkable for stroke and diabetes mellitus. REVIEW OF SYSTEMS: The patient has been gaining weight. Some blurred vision as described. No runny nose or congestion, but complains of coughing and dyspnea. No nausea, no vomiting, no indigestion. Normal regular bowel movements. No abdominal pain. No dysuria, frequency or incontinence. Complains of generalized arthralgia. Headaches since increased blood pressure today. No syncope. PHYSICAL EXAMINATION: VITAL SIGNS: Blood pressure on admission was 215/106, now is 188/98, pulse is 87 , respirations 20, oxygen saturation 100% on room air, temperature is 100.2. GENERAL APPEARANCE: Well developed, well nourished, good body build, no acute distress at this moment. HEENT: Ears: Normal tympanic membranes. Mouth: Normal hypopharynx, no exudation, no erythema. Nose: Normal mucosa. NECK: Supple. No JVD. No carotid bruit. SKIN: Warm and dry with good turgor. LUNGS: Clear to auscultation. No rhonchi, wheezing or crackles. HEART: Regular S1, S2. No S3 was heard. ABDOMEN: Soft, nontender. Bowel sounds are positive. EXTREMITIES: No edema. Good peripheral pulses. No signs of DVT or cyanosis. MUSCULOSKELETAL: Grossly within normal limits. NEUROLOGIC: Alert and oriented x3. Cranial nerves are grossly intact. No motor deficits. Pupils are equal, round, and reactive to light. Extraocular movements are intact. No nystagmus. No cerebellar signs. Deep tendon reflexes are bilateral and symmetric. LAB/IMAGING: White blood count 11.9, hemoglobin 14.3, hematocrit is 43.4, platelet count is 465. INR is 1. PTT is 37, fibrinogen is 434. D-dimer is less than 0.27, glucose is 176, BUN is 20, creatinine is 1. Sodium is 144, potassium is 3.2, chloride is 105, CO2 is 27, calcium is 8.7, protein is 7.5. Liver enzymes unremarkable. EKG normal sinus rhythm. CT of the head was unremarkable. CT angiogram was unremarkable. IMPRESSION: 1. Transient ischemic attack 2. Fever 3. Hyperkalemia 4. Hypertension 5. History of stroke PLAN: After discussion with the emergency department physician at the [facility] [place], tPA administration was reported and since the symptoms resolved completely, the patient's diagnosis is classified to the transient ischemic attack. So the patient will start on aspirin and was told that she cannot go off aspirin. Also, will be on Lopressor 5 mg IV q.6 hours to control the blood pressure. We will also continue outpatient medications including hydrochlorothiazide and Losartan and also I will add a potassium supplement 20 mEq daily for hypokalemia and I will start the patient on Levaquin empirically 500 mg once a day for the fever and high white blood count and I will obtain urinalysis and chest x-ray. We will do neural checks and we do an echocardiogram. No need for carotid ultrasound since the patient had a CT angiogram.
[2016-12-04 02:47] VITALS: BP 107/55
[2016-12-04 06:00] VITALS: BP 130/65
--- NOTE | 2016-12-04 06:42 | Progress Note ---
Subjective General This is a 61-year-old white female who become very upset at 3 p.m. today and then developed weakness in the left side with pulsating pain in that arm. No chest pain. Also developed facial droop with slurred speech. Also some tingling and numbness in the neck and the cheeks. No palpitations, but blurred vision. No tinnitus. The patient was transferred by EMS to the emergency department and the symptoms resolved in the emergency department. Admission by Mario Cabello MD subjective Patient reports that all of her symptoms that she was admitted with have resolved. Patient along with complaint of left arm pain. Patient reports that her facial droop is nonspecific; most likely related to previous stroke. Patient has had breast complete resolution of her symptoms. In the ER if his plan the patient be transferred; this was not completed. Patient request Patient is anxious to go home this evening. Echocardiogram and MRI scheduled. Constitutional Denies: Sweats, Weakness. Eyes Denies: Vision Change. Cardiovascular Denies: Palpitations. Physical Exam Vital Signs / I&Os Vital Signs Date Time Temp Pulse Resp B/P Pulse O2 O2 Flow FiO2 Ox Delivery Rate 12/04 599 98.1 75 18 130/65 97 12/04 0247 97.7 86 18 107/55 99 12/04 0000 Room Air 12/03 2230 112/59 12/03 2211 98.1 80 18 98 I&O 12/03 0800 12/03 1600 12/04 0000 Intake Total 0 Output Total 0 Balance 0 General Appearance Oriented X3, Cooperative HEENT EOMI Lungs Clear to auscultation, Normal air movement Cardiovascular Regular rate and rhythm, Normal S1 and S2 Abdomen Soft, No tenderness Extremities Normal pulses Neurological Sensation intact, facial droop on the left. patient's speech is normal. Arm strength is back to normal Psych/Mental Status Mental status normal, Mood normal LAB Results Laboratory Tests 12/03 12/03 12/04 12/04 1720 2105 0505 0533 Chemistry Plasma Sodium (136 - 145 mmol/L) 144 145 Plasma Potassium (3.5 - 5.1 mmol/L) 3.2 3.9 Plasma Chloride (98 - 107 mmol/L) 105 109 CO2 (Enzymatic) (21 - 32 mmol/L) 27 26 BUN (7 - 18 mg/dL) 20 14 Creatinine (0.6 - 1.3 mg/dL) 1.1 0.8 Est GFR ( Amer) (mL/min) >60 >60 Est GFR (Non-Af Amer) (mL/min) 54.03 >60 Glucose (70 - 110 mg/dL) 176 126 Plasma Calcium (8.5 - 10.1 mg/dL) 8.7 8.7 Total Bilirubin (0.0 - 1.0 mg/dL) 0.3 AST (15 - 37 U/L) 17 ALT (12 - 78 U/L) 28 Alkaline Phosphatase (46 - 116 U/L) 104 Troponin (0.00 - 1.5 ng/mL) <0.05 Cancelled <0.05 Total Protein (6.4 - 8.2 g/dL) 7.5 Albumin (3.3 - 5.0 g/dL) 3.7 Coagulation INR (0.8 - 1.2) 1.0 APTT (24 - 34 SECONDS) 37 Fibrinogen (193 - 455 mg/dL) 434 D-Dimer, Quantitative (0.27 - 0.52 ug/mLFEU) < 0.27 Hematology WBC (4.5 - 11.5 K/uL) 11.9 8.1 RBC (4.00 - 5.20 M/uL) 4.87 4.24 Hgb (12.0 - 16.0 gm/dL) 14.3 12.6 Hct (36.0 - 46.0 %) 43.4 37.6 MCV (80 - 100 fL) 89 89 MCH (26 - 34 pg) 29 30 RDW (11.6 - 14.8 %) 13.6 13.6 Neut % (Auto) (50 - 75 %) 68.6 63.1 Lymph % (Auto) (25 - 40 %) 24.1 24.5 [place] % (Auto) (3 - 14 %) 6.2 10.1 Eos % (Auto) (0 - 4 %) 0.9 1.7 Baso % (Auto) (0 - 2 %) 0.2 0.6 Plt Count, EDTA (150 - 400 K/uL) 465 365 PUBS MCHC (31 - 37 g/dL) 33 33 Imaging CTA Brain 1. No acute occlusion, aneurysm, or dissection. 2. Surgical clips suggestive of prior left carotid intervention. CT brain 1. No CT evidence of acute intracranial process. 2. Changes of prior left parietal and temporal lobe infarct. Chest x-ray 1. No evidence of acute cardiopulmonary disease. Echocardiogram There is borderline concentric left ventricular hypertrophy. Left ventricular systolic function is normal without focal wall motion abnormalities. The ejection fraction is estimated to be 60-65%. Assessment of diastolic parameters indicates a relaxation abnormality of the left ventricle, consistent with normal filling pressures. The right ventricle is normal in size and function. The right ventricular systolic pressure is estimated at 38 mmHg assuming a right atrial pressure of 3 mm Hg. The left atrium is moderately dilated. The ELYSE is 40.0 mL/m2. The right atrium grossly appears normal in size. There is no significant valvular heart disease. The aortic root is normal size. Brain MRI 1. No evidence of acute intracranial process 2. Mild atrophy and minor chronic ischemic changes of the white matter and levy 3. Old left temporal lobe cortical infarct 4. Minor left ethmoid sinus disease Assessment and Plan Problem List 1. TIA (transient ischemic attack) Plan TIA on admission with a resolution of symptoms. MRI showing no acute changes. Cardiac function showing an ejection fraction of 60-65%. Patient is discharged to home with recommendations to follow up with neurology as an outpatient. Patient should continue with the aspirin, statin therapy. Patient should avoid driving for several days. She is told to return to the ED with worsening symptoms 2. Fever Plan Fever resolved. 3. Hypertensive emergency Plan Hypertension. Maintain and monitor blood pressure. This should be managed by primary care provider. 4. Hyperkalemia Plan Elevated potassium. Reduce potassium in diet. No potassium supplementation this time. Patient is on an ARB. 5. Leukocytosis Plan Cell counts normalized overnight. No changes. Current status: stable Anticipated discharge date: Anticipated discharge same day Anticipated discharge placement: Home Patient care time: Time spent in chart review, patient interview, physical exam, CPOE, and care documentation: 25 minutes. Discharge took less than 30 minutes. Visit to patient today: 2 Complexity of care: Mild Initial patient evaluation: Emergency department E&M Codes Rounding: Inpt-Moderate/92405 Admit & Discharge: Comp/Moderate/41518
[2016-12-04 11:00] VITALS: BP 106/54
[2016-12-04 16:23] VITALS: BP 177/78
--- NOTE | 2016-12-04 16:37 | DIAGNOSTIC IMAGING REPORT ---
PROCEDURE: MR BRAIN W/WO CONTRAST INDICATION: Right-sided weakness. TECHNIQUE: T1 sagittal and T2 coronal images. T1, T2, FLAIR, gradient, and diffusion axial images of the brain. Following 20 ml of intravenous gadolinium, FAT-SAT T1 sagittal, axial and coronal images were obtained. COMPARISON: Head CT and head and neck CTA 12/03/2016 FINDINGS: Mild atrophy. Normal ventricular system. Left temporal lobe old cortical infarct with minor chronic ischemic changes of the white matter and levy. There is no acute CVA, hemorrhage, mass or midline shift. There is no abnormal enhancement of the brain parenchyma. Normal vascular flow voids at the skull base. Minor left ethmoid sinus disease. Mastoids are clear. IMPRESSION: 1. No evidence of acute intracranial process 2. Mild atrophy and minor chronic ischemic changes of the white matter and levy 3. Old left temporal lobe cortical infarct 4. Minor left ethmoid sinus disease 5. Results discussed with Dr. Cabello
--- NOTE | 2016-12-04 16:43 | Provider's Discharge Care Plan ---
Problem, Goal, Plan Problem List 1. TIA (transient ischemic attack) Goals: Diagnostic testing, Learn about illness, Therapeutic intervention Instructions: Follow up as needed, Follow up as directed, needing follow-up on MRI Primary care provider needs to have results of MRI study. Also neurology needs to have follow-up visitation.
--- NOTE | 2016-12-04 17:39 | DIAGNOSTIC IMAGING REPORT ---
REFERRING PHYSICIAN/PROVIDER: Jeffrey Cabello MD CONSULTING PROVIDER CONTRACTING CONSULTANT: Carlo Espitia MD INDICATION: htn Procedure: A two-dimensional transthoracic echocardiogram with color flow and Doppler was performed. The study quality was technically adequate. The patient was in normal sinus rhythm during the exam. Left Ventricle: The left ventricle is normal in size. There is borderline concentric left ventricular hypertrophy. Left ventricular systolic function is normal without focal wall motion abnormalities. The ejection fraction is estimated to be 60-65%. Assessment of diastolic parameters indicates a relaxation abnormality of the left ventricle, consistent with normal filling pressures. Right Ventricle: The right ventricle is normal in size and function. Atria: The left atrium is moderately dilated. The ELYSE is 40.0 mL/m2. The right atrium grossly appears normal in size. The interatrial septum is intact with no evidence for an atrial septal defect. Mitral Valve: The mitral valve is normal in structure and function. There is no mitral regurgitation. Aortic Valve: The aortic valve is trileaflet. The aortic valve opens well. There is no aortic regurgitation. Tricuspid Valve: The tricuspid valve is normal in structure and function. There is a trace or physiologic amount of tricuspid regurgitation. The right ventricular systolic pressure is estimated at 38 mmHg assuming a right atrial pressure of 3 mm Hg. Pulmonic Valve: The pulmonic valve is not well visualized. The pulmonic valve is not well seen, but is grossly normal. There is no pulmonic valvular regurgitation. There is no significant valvular heart disease. Great Vessels: The aortic root is normal size. The ascending aorta is normal in size. The IVC is of normal diameter and collapses greater than 50% with a sniff. This suggests a low right atrial pressure of 3 mm Hg. Pericardium/ Pleura There is no pericardial effusion. IMPRESSION: There is borderline concentric left ventricular hypertrophy. Left ventricular systolic function is normal without focal wall motion abnormalities. The ejection fraction is estimated to be 60-65%. Assessment of diastolic parameters indicates a relaxation abnormality of the left ventricle, consistent with normal filling pressures. The right ventricle is normal in size and function. The right ventricular systolic pressure is estimated at 38 mmHg assuming a right atrial pressure of 3 mm Hg. The left atrium is moderately dilated. The ELYSE is 40.0 mL/m2. The right atrium grossly appears normal in size. There is no significant valvular heart disease. The aortic root is normal size.
== END 2016-12-04 17:05 | disposition home or self-care (01) ==
LOC: ED SRH 17:16 → TRANS SRH 20:18 → ACUTE2 SRH 22:15
PROVIDERS: ADMIT Student in an Organized Health Care Education/Training Program
DX: G45.9 Transient cerebral ischemic attack, unspecified (principal); I16.1 Hypertensive emergency; R50.9 Fever, unspecified; E87.5 Hyperkalemia; Z86.73 Personal history of transient ischemic attack (TIA), and cerebral infarction without residual deficits
CPT/HCPCS: 29230; 29244; 29251; 29253; 29259; 29264; 90004; 90047; 90074; 90100; 90616; 91556; 92690; 94001; 94050; 94060; 95059